=== PATIENT | female | born 1985 | race African-American/Black ===

== ENCOUNTER 2019-07-18 14:05 | Emergency (ER) | payer MEDICAID ==
[~2019-07-18] VITALS: Ht 175.3 cm; Wt 81.2 kg
[2019-07-18 15:01] VITALS: BP 109/56
[2019-07-18] MEDS ORDERED: Phenazopyridine 200mg tab ORAL ONE (15:45)
[2019-07-18 16:06] LABS: APPEARANCE,URINE CLEAR; BILIRUBIN, URINE NEGATIVE (NEGATIVE); GLUCOSE, URINE (UA) NEGATIVE (NEGATIVE); KETONES,URINE 1+ (NEGATIVE); LEUKOCYTE ESTERASE ,URINE 1+ (NEGATIVE); NITRITE,URINE NEGATIVE (NEGATIVE); PH,URINE 6.5 (4.5-8.0); PROTEIN,URINE 2+ (NEGATIVE); UROBILINOGEN,URINE NORMAL MG/DL (0.0-1.0)
[2019-07-18 16:08] LABS: COLOR,URINE YELLOW
--- NOTE | 2019-07-18 16:27 | Emergency Room Report ---
History of Present Illness General Chief Complaint: Female Urogenital Problems Source: Patient Present Illness HPI 34 YO Female presents to the ED c/o 01/21 in severity dysuria x 5 days with white d/c. Pt. denies malodor. Pt. denies recent abx use. Pt. denies fevers, chills, hematuria, frequency or urgency. Pt. Denies STi suspicion or . Pt. denies abdominal pain, genital rash/lesions, swollen tender lymph nodes or any other symptoms. Pt. denies aggravating or relieving factors at this time. Allergies: Coded Allergies: PENICILLINS (Verified Allergy, Unknown, 07/18/19) SULFAMETHOXAZOLE (Verified Allergy, Unknown, 07/18/19) TRIMETHOPRIM (Verified Allergy, Unknown, 07/18/19) Patient History Past Medical History: see triage record Past Surgical History: none Pertinent Family History: none Last Menstrual Period: 07/11/2019 Now: No Reviewed Nursing Documentation: PMH: Agreed; PSxH: Agreed Nursing Documentation-PMH Past Medical History: No History, Except For History Of Psychiatric Problem: Yes - Anxiety Review of Systems All Other Systems: negative except mentioned in HPI Physical Exam Vital Signs Date Time Temp Pulse Resp B/P (MAP) Pulse Ox O2 Delivery O2 Flow Rate FiO2 07/18/19 15:01 98.8 83 16 109/56 (73) 99 Room Air Sp02 EP Interpretation: reviewed, normal General Appearance: no apparent distress, alert, GCS 15, non-toxic Head: normocephalic, atraumatic Eyes: bilateral eye normal inspection, bilateral eye PERRL ENT: hearing grossly normal, normal voice Neck: full range of motion Respiratory: lungs clear, normal breath sounds, speaking full sentences Cardiovascular #1: regular rate, rhythm Gastrointestinal: normal bowel sounds, non tender, soft, non-distended, no guarding Rectal: deferred Genitourinary: normal inspection, no CVA tenderness, deferred - pelvic deferred Musculoskeletal: normal range of motion, gait/station normal, non-tender Neurologic: alert, motor strength/tone normal, oriented x3, sensory intact, responsive, speech normal Psychiatric: judgement/insight normal Skin: no rash Medical Decision Making PA Attestation Dr. Bird Is my supervising Physician whom patient management has been discussed with. Diagnostic Impression: Primary Impression: Yeast vaginitis Additional Impression: Dysuria ER Course 34 YO Female presents to the ED c/o 01/21 in severity dysuria x 5 days with white d/c. Pt. denies malodor. Pt. denies recent abx use. Pt. denies fevers, chills, hematuria, frequency or urgency. Pt. Denies STi suspicion or . Pt. denies abdominal pain, genital rash/lesions, swollen tender lymph nodes or any other symptoms. Pt. denies aggravating or relieving factors at this time. Ddx considered but are not limited to UTi , Pyelo, STI, Stone, Cystitis Vital signs: are WNL, pt. is afebrile H&PE are most consistent with UTI vs. vaginitis. ORDERS: - UA labs are attached --most indicative of contamination: presence of equal amounts of bacteria and squamous cells, no elevation in inflammatory markers, nitrite negative. Moderate yeast noted ED INTERVENTIONS: -Pyridium -Diflucan-- pt. declined and reported she wants to start it tomorrow. -I do not identify an emergent condition at this time. With current presentation , pt. is stable for close outpatient follow up and conservative treatment. D/ w pt. to return promptly to ED with worsening or new symptoms.- Pt. verbalizes' understanding and agreement with proposed treatment plan. DISCHARGE: At this time pt. is stable for d/c to home. Will provide printed patient care instructions, and any necessary prescriptions. Care plan and follow up instructions have been discussed with the patient prior to discharge. Labs Test 07/18/19 15:10 Urine Color Yellow Urine Appearance Clear Urine pH 6.5 (4.5-8.0) Urine Specific [place] 1.015 (1.005-1.035) Urine Protein 2+ (NEGATIVE) Urine Glucose (UA) Negative (NEGATIVE) Urine Ketones 1+ (NEGATIVE) Urine Blood 5+ (NEGATIVE) Urine Nitrite Negative (NEGATIVE) Urine Bilirubin Negative (NEGATIVE) Urine Urobilinogen Normal MG/DL (0.0-1.0) Urine Leukocyte Esterase 1+ (NEGATIVE) Urine RBC 2-4 /HPF (0 - 2) Urine WBC 2-4 /HPF (0 - 2) Urine Squamous Epithelial Cells Moderate /LPF (NONE/OCC) Urine Bacteria Few /HPF (NONE) Urine Yeast Occasional /HPF (NONE) Last Vital Signs Date Time Temp Pulse Resp B/P (MAP) Pulse Ox O2 Delivery O2 Flow Rate FiO2 07/18/19 15:01 98.8 83 16 109/56 (73) 99 Room Air Disposition: HOME, SELF-CARE Condition: Stable Scripts Phenazopyridine Hcl* (PYRIDIUM*) 100 Mg Tablet 100 MG ORAL THREE TIMES A DAY, #9 TAB Prov: Katerina Marie 07/18/19 Fluconazole (FLUCONAZOLE) 100 Mg Tablet 100 MG ORAL DAILY, #5 TAB 0 Refills Prov: Katerina Marie 07/18/19 Patient Instructions: Dysuria, Vaginal Yeast Infection, Adult Additional Instructions: Take medications as directed. Follow up with a Primary Care Provider in 3-5 days, even if your symptoms have resolved. Return sooner to ED if new symptoms occur, or current symptoms become worse. - Please note that this Emergency Department Report was dictated using [employer] technology software, occasionally this can lead to erroneous entry secondary to interpretation by the dictation equipment. Katerina Marie Jul 18, 2019 16:27
[2019-07-18] MEDS ORDERED: PHENAZOPYRIDIN100 MG ORAL (16:28)
[2019-07-18] MEDS ORDERED: FLUCONAZOLE100 MG ORAL (16:28)
--- NOTE | 2019-07-18 16:30 | NUR ---
ED Nurse Note: Patient refused fluconazole. Patient states she wanted to start taking tomorrow. MAGDALENO Borges notified.
--- NOTE | 2019-07-18 16:39 | NUR ---
ER DISCHARGE NOTE: Patient is cleared to be discharged per ERMD, pt is aox4, on room air. pt was given dc and prescription instructions, pt was able to verbalize understanding, pt id band removed without complications. pt is able to ambulate with steady gait. pt took all belongings.
[2019-07-18] MEDS: Fluconazole 150mg tab ORAL ONE ×2 (16:43→16:46)
== END 2019-07-18 16:39 | disposition home or self-care (01) ==
LOC: EMR 15:31
DX: N76.0 Acute vaginitis (principal); R30.0 Dysuria; F41.9 Anxiety disorder, unspecified; Z88.0 Allergy status to penicillin; Z88.2 Allergy status to sulfonamides; Z88.8 Allergy status to other drugs, medicaments and biological substances
CPT/HCPCS: 81003; 87086; Z7502; 99283